=== PATIENT | male | born 1970 | race Hispanic/Latino ===

== ENCOUNTER 2020-11-29 21:57 | Emergency (ER) | payer OTHER ==
[2020-11-29] MEDS ORDERED: diphenhydrAMINE 50 MG CAP ONE (22:57)
[2020-11-29] MEDS ORDERED: diphenhydrAMINE 50 MG/ML VIAL ONE (22:57)
[2020-11-29] MEDS ORDERED: Haloperidol Lactate 5 MG/ML VIAL ONE (22:57)
[2020-11-29] MEDS ORDERED: Lorazepam 2 MG/ML VIAL ONE (22:57)
== END 2020-11-29 23:34 | disposition left against medical advice (07) ==
LOC: ERS 21:57
DX: R45.1 Restlessness and agitation (principal); F22 Delusional disorders
CPT/HCPCS: 99285; J1200; J1630; J2060

== ENCOUNTER 2021-12-03 21:20 | Emergency (ER) | payer OTHER, SELFPAY ==
[2021-12-03] MEDS ORDERED: Lorazepam 1 MG TAB ONE ×2 (22:38→23:26)
[2021-12-03] MEDS ORDERED: OLANZapine 5 MG TAB ONE ×2 (22:38→23:34)
[2021-12-03 22:51] LABS: #Lymphocytes 1.4 thou/uL (1.20-3.40); #Monocytes 1.2 thou/uL (0.11-0.59); #Neutrophils 16.7 thou/uL (1.40-6.50); %Basophils 0.1 % (0.0-1.0); %Lymphocytes 7.4 % (21.0-51.0); %Monocytes 6.1 % (0.0-10.0); %Neutrophils 86.4 % (42.0-75.0); Hemoglobin 15.7 g/dL (14.0-18.0); Mean Corpuscular HGB CONC 33.4 g/dL (32.0-36.0); Mean Corpuscular Hemoglobin 31.9 pg (27.0-31.0); Mean Corpuscular Volume 95.6 fL (78.0-98.0); Mean Platelet Volume 7.2 fL (7.4-10.4); Platelet Count 358 thou/uL (130-400); RBC Distribution Width 12.8 % (11.5-14.5); Red Blood Cell (RBC) Count 4.92 mill/uL (4.70-6.10); White Blood Cell (WBC) Count 19.3 thou/uL (4.8-10.8)
[2021-12-03 23:11] LABS: ALT (SGPT) 29 U/L (8-55); AST (SGOT) 62 U/L (5-34); Acetaminophen Less than 6.0 mcg/mL (10.0-30.0); Albumin 5.1 g/dL (3.5-5.0); Alcohol Less than 10 mg/dL (Less than 10); Alkaline Phosphatase 55 U/L (40-110); Anion Gap 21 mmol/L (10-20); BUN (Urea Nitrogen) 37 mg/dL (8.4-25.7); Bilirubin, Total 1.1 mg/dL (0.2-1.2); CK (CPK) 1953 U/L (30-200); Calc. Creatinine Clearance 0 mL/min (70-130); Calcium 10.5 mg/dL (7.8-10.44); Carbon Dioxide 24 mmol/L (22-29); Chloride 101 mmol/L (98-107); Globulin 3.2 g/dL (2.4-3.5); Glucose 138 mg/dL (70-105); Potassium 4.3 mmol/L (3.5-5.1); Protein, Total 8.3 g/dL (6.0-8.3); Salicylate Less than 8.0 mg/dL (15.0-30.0); Sodium 142 mmol/L (136-145)
[2021-12-03] MEDS ORDERED: Lorazepam 2 MG/ML VIAL ONE (23:23)
[2021-12-03] MEDS ORDERED: Haloperidol Lactate 5 MG/ML VIAL ONE (23:23)
[2021-12-03] MEDS ORDERED: diphenhydrAMINE 50 MG/ML VIAL ONE (23:23)
[2021-12-03] MEDS ORDERED: Ziprasidone 20 MG CAP ONE (23:26)
[2021-12-04 01:37] LABS: Amphetamine Detected (NotDetected); Barbiturates Screen Not Detected (NotDetected); Benzodiazepine Screen Not Detected (NotDetected); Cocaine Metabolite Screen Not Detected (NotDetected); Methadone Not Detected (NotDetected); Methamphetamine Detected (NotDetected); Opiate Screen Not Detected (NotDetected); Oxycodone Screen Not Detected (NotDetected); Phencyclidine (PCP) Not Detected (NotDetected); THC/Cannabinoid Screen Not Detected (NotDetected); Tricyclic Screen Not Detected (NotDetected)
[2021-12-04 01:43] LABS: Bacteria/HPF 4+ HPF (None Seen); Bilirubin Negative (Negative); Blood, Urine Negative (Negative); Clarity Turbid (Clear); Glucose, Urine (Dipstick) Normal (Negative); Ketone, Urine 10 mg/dL (Negative); Leukocyte Negative Leu/uL (Negative); Nitrite Negative (Negative); Protein, Urine (Dipstick) 70 mg/dL (Neg-Trace); Specific Gravity, Urine 1.028 (1.002-1.036); Squamous Epithelial 0-3 HPF (0-3); Urobilinogen Normal mg/dL (Less than 2); pH, Urine 5.5 (5.0-9.0)
[2021-12-04 01:44] LABS: Sperm/HPF 4+ HPF (None Seen)
== END 2021-12-04 06:32 | disposition home or self-care (01) ==
LOC: ERS 21:20
DX: F29 Unspecified psychosis not due to a substance or known physiological condition (principal); F19.10 Other psychoactive substance abuse, uncomplicated; R00.0 Tachycardia, unspecified; Z79.899 Other long term (current) drug therapy
CPT/HCPCS: 80053; 80306; 80307; 81003; 81015; 82550; 84443; 85025; 93005; J1200; J1630; J2060

== ENCOUNTER 2022-04-06 08:04 | Observation (INO) | payer OTHER ==
[2022-04-06] MEDS ORDERED: Haloperidol Lactate 5 MG/ML VIAL ONE ×2 (08:31)
[2022-04-06] MEDS ORDERED: Lorazepam 2 MG/ML VIAL ONE (08:31)
[2022-04-06] MEDS ORDERED: OLANZapine 5 MG TAB ONE (08:38)
[2022-04-06] MEDS ORDERED: traZODone HCl 50 MG TAB ONE (08:38)
[2022-04-06 09:43] LABS: #Lymphocytes 0.8 thou/uL (1.20-3.40); #Monocytes 0.6 thou/uL (0.11-0.59); #Neutrophils 9.9 thou/uL (1.40-6.50); %Eosinophils 0.1 % (0.0-10.0); %Lymphocytes 7.2 % (21.0-51.0); %Monocytes 4.9 % (0.0-10.0); %Neutrophils 87.7 % (42.0-75.0); Hemoglobin 13.1 g/dL (14.0-18.0); Mean Corpuscular HGB CONC 33.7 g/dL (32.0-36.0); Mean Corpuscular Hemoglobin 32.9 pg (27.0-31.0); Mean Corpuscular Volume 97.7 fL (78.0-98.0); Mean Platelet Volume 7.2 fL (7.4-10.4); Platelet Count 201 thou/uL (130-400); RBC Distribution Width 12.3 % (11.5-14.5); Red Blood Cell (RBC) Count 3.99 mill/uL (4.70-6.10); White Blood Cell (WBC) Count 11.3 thou/uL (4.8-10.8)
[2022-04-06 10:03] LABS: ALT (SGPT) 62 U/L (8-55); AST (SGOT) 157 U/L (5-34); Acetaminophen Less than 10.0 mcg/mL (10.0-30.0); Albumin 3.9 g/dL (3.5-5.0); Alcohol Less than 10 mg/dL (Less than 10); Alkaline Phosphatase 46 U/L (40-110); Anion Gap 14 mmol/L (10-20); BUN (Urea Nitrogen) 25 mg/dL (8.4-25.7); Bilirubin, Total 1.4 mg/dL (0.2-1.2); Calc. Creatinine Clearance 0 mL/min (70-130); Calcium 8.5 mg/dL (7.8-10.44); Carbon Dioxide 24 mmol/L (22-29); Chloride 102 mmol/L (98-107); Estimated GFR 107; Globulin 2.3 g/dL (2.4-3.5); Glucose 126 mg/dL (70-105); Protein, Total 6.2 g/dL (6.0-8.3); Salicylate Less than 8.0 mg/dL (15.0-30.0); Sodium 137 mmol/L (136-145)
[2022-04-06 10:40] LABS: Lipase 14 U/L (8-78); Magnesium 2.1 mg/dL (1.6-2.6)
[2022-04-06] MEDS ORDERED: traZODone HCl 50 MG TAB PO PRN (11:12)
[2022-04-06] MEDS ORDERED: Potassium Chloride 20 MEQ TAB ONE (11:26)
[2022-04-06] MEDS ORDERED: Lactated Ringer's 1,000 ML IV SCH (13:00)
[2022-04-06] MEDS: Lactated Ringer's 1,000 ML IV SCH (16:37)
[2022-04-06 20:34] VITALS: BMI 27.1
[2022-04-06] MEDS: Famotidine 20 MG TAB PO SCH (21:12)
[2022-04-07] MEDS: Lactated Ringer's 1,000 ML IV SCH ×2 (02:21→10:29)
[2022-04-07] MEDS: OLANZapine 5 MG TAB PO SCH (10:28)
[2022-04-07] MEDS: Enoxaparin Sodium 40 MG/0.4 ML SYRINGE SC SCH (10:29)
[2022-04-07] MEDS: Famotidine 20 MG TAB PO SCH ×2 (10:29→23:14)
[2022-04-08 01:14] VITALS: TEMP 98
[2022-04-08 04:56] VITALS: BP 132/82
[2022-04-08] MEDS ORDERED: Acetaminophen 325 MG TAB PO PRN (05:35)
[2022-04-08] MEDS: OLANZapine 5 MG TAB PO SCH ×2 (10:21→11:04)
[2022-04-08] MEDS: Famotidine 20 MG TAB PO SCH (11:04)
[2022-04-08] MEDS: Enoxaparin Sodium 40 MG/0.4 ML SYRINGE SC SCH (11:04)
== END 2022-04-08 12:19 | disposition home or self-care (01) ==
LOC: ERS 08:04 → 2NO 11:03
PROVIDERS: ADMIT Internal Medicine; ATTEND Internal Medicine
DX: F23 Brief psychotic disorder (principal); M62.82 Rhabdomyolysis; F15.10 Other stimulant abuse, uncomplicated; F31.9 Bipolar disorder, unspecified; R00.0 Tachycardia, unspecified; Z79.899 Other long term (current) drug therapy; Z88.0 Allergy status to penicillin; Z88.8 Allergy status to other drugs, medicaments and biological substances; Z20.822 Contact with and (suspected) exposure to COVID-19
CPT/HCPCS: 36415; 80053; 80307; 82550; 83690; 83735; 83880; 84443; 84484; 85025; 93005; G0378; J1630; J2060; J7120; U0003; U0005